=== PATIENT | male | born 1955 | race Caucasian/White ===

== ENCOUNTER → 2016-07-21 | Outpatient (REF) ==
[~2016-07-21] MED LIST: CEPHALEXIN500 M1 PO; LEVOXYL0.125 MG PO; NORCO 325 MG-51 TAB PO; NORVASC 10MG10 MG PO; SEPTRA DS 8001 TAB PO
== END ==
LOC: WSOH 08:04
DX: Z00.00 Encounter for general adult medical examination without abnormal findings (principal)
CPT/HCPCS: G0463

== ENCOUNTER 2017-08-09 21:52 | Emergency (ER) | payer BC ==
[~2017-08-09] VITALS: Ht 185.4 cm; Wt 104.5 kg
[2017-08-09] MEDS ORDERED: AMOXICILLIN 8751 TAB PO (22:19)
[2017-08-09 22:36] VITALS: BP 140/76; PULSE 98; TEMP 99.7
== END 2017-08-09 22:35 | disposition home or self-care (01) ==
LOC: COL.ER 21:52
DX: L03.115 Cellulitis of right lower limb (principal); I10 Essential (primary) hypertension
CPT/HCPCS: J0696

== ENCOUNTER 2018-12-07 13:40 | Emergency (ER) | payer OTHER ==
[~2018-12-07] VITALS: Ht 185.4 cm; Wt 97.7 kg
[~2018-12-07 13:40] MED LIST changes: +AMOXICILLIN 8751 TAB PO
[2018-12-07 13:45] VITALS: TEMP 98.3
[2018-12-07] MEDS ORDERED: CEPHALEXIN500 M1 PO (14:37)
[2018-12-07] MEDS ORDERED: NORCO 325 MG-51 TAB PO (14:38)
[2018-12-07 14:54] VITALS: BP 130/88; PULSE 70
== END 2018-12-07 14:55 | disposition home or self-care (01) ==
LOC: COL.ER 13:40
DX: S62.633A Displaced fracture of distal phalanx of left middle finger, initial encounter for closed fracture (principal); I10 Essential (primary) hypertension; W23.0XXA Caught, crushed, jammed, or pinched between moving objects, initial encounter